=== PATIENT | female | born 1965 | race Caucasian/White ===

== ENCOUNTER 2018-07-06 21:33 | Inpatient (IN) | payer OTHER ==
[~2018-07-06] VITALS: Ht 165.1 cm; Wt 80.7 kg
[2018-07-06] VITALS: BP 125/84
[2018-07-06] MEDS ORDERED: PROPOFOL 20 ML IV ONE (21:38)
--- NOTE | 2018-07-06 21:40 | NUR ---
PT BIBRA COMPLAINING OF RIGHT ANKLE PAIN AFTER FALL FROM MOTORIZED SCOOTER. PT DENIES LOC, HEADACHE, CHANGE IN VISION. NOTED DEFORMITY ON RIGHT ANKLE. PT IN SEVERE PAIN. PT PLACED ON DIRECTOR OF FLIGHT OPERATIONS, WILL CONTINUE TO MONITOR
--- NOTE | 2018-07-06 21:43 | NUR ---
MD AT BEDSIDE FOR EVALUATION
--- NOTE | 2018-07-06 21:44 | NUR ---
CONSENT FORM SIGNED FOR MODERATE SEDATION FOR RIGHT ANKLE REDUCTION
--- NOTE | 2018-07-06 21:45 | NUR ---
DR. RICHARDSON AND RT AT BEDSIDE
[2018-07-06] MEDS ORDERED: IV NS 0.9% 500 ML IV ONE (22:00)
[2018-07-06] MEDS ORDERED: PROPOFOL 200 MG/20 ML VIAL IV ONE (22:00)
[2018-07-06] MEDS ORDERED: HYDROMORPHONE INJ 0.5 MG/0.5 ML SYRINGE IV ONE (22:00)
--- NOTE | 2018-07-06 22:00 | NUR ---
PT AAOX4. RESPIRATIONS EVEN AND UNLABORED. VITAL SIGNS STABLE. WILL CONTINUE TO MONITOR
[2018-07-06] MEDS ORDERED: HYDROMORPHONE 1 MG/1 ML DISP.SYRIN ONE (22:08)
--- NOTE | 2018-07-06 22:15 | NUR ---
FAMILY AT BEDSIDE
[2018-07-06] MEDS ORDERED: MAG HYDROX/AL HYDROX/SIMETH 30 ML UDC PO PRN (23:00)
[2018-07-06] MEDS ORDERED: MORPHINE SULFATE INJ 4 MG/ML DISP.SYRIN IV PRN (23:00)
[2018-07-06] MEDS ORDERED: Z GUARD REMEDY 2 OZ OINT TP PRN (23:00)
[2018-07-06] MEDS ORDERED: HYDROCODONE/APAP 5/325MG 1 EACH TABLET PO PRN (23:00)
[2018-07-06] MEDS ORDERED: MAGNESIUM HYDROXIDE 30 ML UDC PO PRN (23:00)
[2018-07-06] MEDS ORDERED: ZOLPIDEM TARTRATE 5 MG TABLET PO PRN (23:00)
[2018-07-06] MEDS ORDERED: ACETAMINOPHEN 325 MG TABLET PO PRN (23:00)
[2018-07-06] MEDS ORDERED: ONDANSETRON HCL/PF 4 MG/2 ML VIAL IVP PRN (23:00)
[2018-07-06 23:14] LABS: BASOPHILS # (AUTO) 0.1 /CMM (0.0-0.2); BASOPHILS % (AUTO) 0.4 % (0.0-2.0); EOSINOPHILS % (AUTO) 0.7 % (0.0-6.0); HEMATOCRIT 41 % (33-45); LYMPHOCYTES # (AUTO) 2.3 /CMM (0.8-4.8); LYMPHOCYTES % (AUTO) 18.3 % (20.0-44.0); MEAN CORPUSCULAR HGB CONC 31 g/dl (31.0-36.0); MEAN CORPUSCULAR VOLUME 82 fL (82-100); MONOCYTES # (AUTO) 0.6 /CMM (0.1-1.30); MONOCYTES % (AUTO) 4.6 % (2.0-12.0); NEUTROPHILS # (AUTO) 9.4 /CMM (1.8-8.9); PLATELET COUNT (AUTO) 247 /CMM (150-450); RED BLOOD CELL COUNT(AUTO) 5.03 MIL/uL (4.0-5.2); WHITE BLOOD COUNT (AUTO) 12.3 K/uL (4.3-11.0)
--- NOTE | 2018-07-06 23:17 | NUR ---
GAVE REPORT TO JAELYN MATHUR FOR OLIMPIA
[2018-07-06 23:28] LABS: CALCIUM, SERUM 8.9 mg/dL (8.5-10.1); CREATININE 0.7 mg/dL (0.6-1.3); POTASSIUM 4.2 mmol/L (3.5-5.1)
[2018-07-07] VITALS: BP 125/84
--- NOTE | 2018-07-07 | NUR ---
RN ADMITTING NOTES Pt ARRIVED TO FLOOR VIA ER [facility]. Pt WAS SAFELY TRANSFERRED FROM [place] TO ROOM BED. Pt IS A/OX4, VERBAL, ABLE TO MAKE NEEDS KNOWN. ABLE TO COMMUNICATE WELL. NO S/S OF SEVERE SOB NOTED. FAMILY IS AT BEDSIDE. SAFETY MEASURES IN PLACE. BED LOW, LOCKED, HOB ELEVATED, SIDE RAILS UP, CALL LIGHT AND BEDSIDE TABLE WITHIN REACH. WILL CONTINUE TO MONITOR Pt's CONDITION AND SAFETY THROUGHOUT THE NIGHT.
--- NOTE | 2018-07-07 00:25 | NUR ---
RN NOTES Pt IS IN TOO MUCH PAIN DUE TO RT FOOT FX TO MOVE TO HER SIDE TO DO A FULL SKIN ASSESSMENT OF THE BACK AND SACRUM. Pt DID NOT WANT TO MOVE TO SIDE. OFFERED PAIN MEDICATION FOR HER PAIN, BUT Pt SAID SHE WANTED TO BE AWAKE & ALERT WHEN THE DR COMES UP TO SPEAK WITH HER. PER Pt STATEMENT DOES NOT HAVE ANY OTHER WOUNDS OR INJURY ON BACK THAT SHE KNOWS OF. WAS ONLY ABLE TO DO FRONT HEAD TO TOE SKIN ASSESSMENT. FOUND SKIN TO BE INTACT. ONE SMALL ELBOW SCRATCH MONTY ON THE RT ARM.
--- NOTE | 2018-07-07 01:15 | NUR ---
RN NOTES DR PATRICIO IN ROOM VISITING Pt AND SPEAKING WITH Pt AND FAMILY MEMBERS.
--- NOTE | 2018-07-07 01:45 | NUR ---
RN NOTES SHENG SPOKE WITH Pt AND FAMILY AND ANSWERED THEIR QUESTIONS IN REGARDS TO PLAN OF CARE. DUE TO Pt's ADVERSE REACTION TO MORPHINE, SHENG CHANGED ORDER TO DILAUDID 0.25MG Q4H IV PRN FOR SEVERE PAIN & TORADOL 30MG Q6H IM FOR SEVERE PAIN/BREAK THROUGH PAIN. SHENG ALSO ORDERED X1 DOSE OF XANAX 1MG PO. THEN WILL HAVE A STANDING PRN ORDER FOR XANAX 0.5MG Q8H FOR ANXIETY.
[2018-07-07] MEDS ORDERED: ALPRAZOLAM 0.25 MG TABLET PO PRN (02:00)
[2018-07-07] MEDS ORDERED: HYDROCODONE/APAP 10/325MG 1 EA TABLET PO PRN (02:00)
[2018-07-07] MEDS ORDERED: HYDROMORPHONE INJ 0.5 MG/0.5 ML SYRINGE IV PRN (02:00)
[2018-07-07] MEDS ORDERED: ALPRAZOLAM 1 MG TABLET PO ONE (02:00)
[2018-07-07] MEDS ORDERED: KETOROLAC TROMETHAMINE INJ 30 MG/ML VIAL IM PRN (02:00)
[2018-07-07] MEDS ORDERED: HYDROCODONE/APAP 5/325MG 1 EACH TABLET PO PRN (02:00)
--- NOTE | 2018-07-07 02:04 | NUR ---
RN NOTES WAS ABLE TO DO A PARTIAL UPPER BACK SKIN ASSESSMENT. FOUND SKIN INTACT.
--- NOTE | 2018-07-07 02:40 | NUR ---
RN NOTES ADMINISTERED XANAX 1MG PO PER MD ORDER
--- NOTE | 2018-07-07 03:19 | NUR ---
RN NOTES Pt IS HOLDING OFF ON SIGNING ANY CONSENT FORM FOR SURGERY FOR THE RT FOOT FX, UNTIL SHE SPEAKS PERSONALLY WITH THE ORTHOPEDIC TEAM/SURGEON WHO WILL BE PERFORMING THE SURGERY TO ANSWER HER QUESTIONS AND EXPLAIN IN DETAIL WHAT THE SURGERY ENTAILS. Pt IS REQUESTING TO BE SEEN BY THE DR FIRST IN THE MORNING.
--- NOTE | 2018-07-07 04:40 | NUR ---
RN NOTES ABDUCTOR PILLOW PLACED IN BETWEEN LEGS TO HELP Pt KEEP RT LEG STRAIGHT AND IMMOBILE.
--- NOTE | 2018-07-07 06:35 | NUR ---
RN CLOSING NOTES NO SIGNIFICANT CHANGES IN Pt's CONDITION. Pt REMAINS STABLE PER BASELINE. FOUND Pt ASLEEP IN BED. NO S/S OF ACUTE DISTRESS OR SOB NOTED. RESPIRATIONS EVEN AND UNLABORED. ABDUCTOR PILLOW IN PLACE. ALL NEEDS MET AND ATTENDED TO. SAFETY MEASURES IN PLACE. WILL ENDORSE TO DAYSHIFT RN FOR Pt's OLIMPIA.
[2018-07-07 06:52] LABS: BASOPHILS # (AUTO) 0.1 /CMM (0.0-0.2); BASOPHILS % (AUTO) 0.5 % (0.0-2.0); EOSINOPHILS % (AUTO) 0.6 % (0.0-6.0); HEMATOCRIT 37 % (33-45); HEMOGLOBIN 11.8 g/dL (11.5-14.8); LYMPHOCYTES # (AUTO) 2.3 /CMM (0.8-4.8); LYMPHOCYTES % (AUTO) 20.3 % (20.0-44.0); MEAN CORPUSCULAR HGB CONC 32 g/dl (31.0-36.0); MEAN CORPUSCULAR VOLUME 81 fL (82-100); MONOCYTES # (AUTO) 0.7 /CMM (0.1-1.30); MONOCYTES % (AUTO) 6.7 % (2.0-12.0); NEUTROPHILS # (AUTO) 8.1 /CMM (1.8-8.9); NEUTROPHILS % (AUTO) 71.9 % (43.0-81.0); PLATELET COUNT (AUTO) 292 /CMM (150-450); RED BLOOD CELL COUNT(AUTO) 4.56 MIL/uL (4.0-5.2); WHITE BLOOD COUNT (AUTO) 11.2 K/uL (4.3-11.0)
[2018-07-07 07:00] LABS: CALCIUM, SERUM 8.9 mg/dL (8.5-10.1); CREATININE 0.7 mg/dL (0.6-1.3); PHOSPHORUS 3.7 mg/dL (2.5-4.9); POTASSIUM 3.7 mmol/L (3.5-5.1)
[2018-07-07] MEDS ORDERED: BUPIVACAINE 0.5 % PF 150 MG/30 ML VIAL ONE (07:27)
[2018-07-07] MEDS ORDERED: ANESTHESIA TRAY IN PYXIS 1 EA TRAY MC ONE (07:27)
[2018-07-07] MEDS ORDERED: BACITRACIN 50000 UNITS/VIAL ONE (07:28)
--- NOTE | 2018-07-07 07:38 | NUR ---
MS RN OPENING NOTES RECEIVED PT FROM NIGHTSHIFT RN IN STABLE CONDITION. PT IS A/O X3. NO SOB NOTED. BREATHING IS EVEN AND UNLABORED. PT ON RA AND SATING WELL. PT COMPLAINS OF A SHARP PAIN RATED A 9/10 TO HER RIGHT ANKLE. VSS. IV TO LEFT HAND NOTED TO BE PATENT AND INTACT. NO REDNESS OR SIGNS OF INFILTRATION NOTED. DR. ROBERT AT BEDSIDE TO DISCUSS POSSIBLE SURGICAL INTERVENTION. PT STATES THAT SHE NEEDS TIME TO DISCUSS WITH HER FAMILY ABOUT PLAN OF CARE BEFORE SIGNING CONSENTS. BED IN LOW LOCKED POSITION, SIDE RAILS UP X2, CALL LIGHT WITHIN REACH. WILL CONTINUE TO MONITOR
[2018-07-07 08:00] VITALS: BP 127/70
--- NOTE | 2018-07-07 08:25 | NUR ---
MS RN NOTES: SURGICAL CONSENTS PT AGREEABLE TO SURGICAL INTERVENTION. CONSENTS FOR PROCEDURE, ANESTHESIA, AND BLOOD/BLOOD PRODUCTS SIGNED BY PT AND MD. SURGICAL CHECKLIST COMPLETED BY RN.
--- NOTE | 2018-07-07 08:30 | NUR ---
PT TAKEN DOWN TO OR IN STABLE CONDITION
[2018-07-07] MEDS ORDERED: BUPIVACAINE 0.75% DEXT-PF 2 ML AMPUL ONE (08:36)
[2018-07-07] MEDS ORDERED: MIDAZOLAM HCL 2 MG/2ML VIAL ONE (08:36)
[2018-07-07] MEDS ORDERED: MORPHINE SULFATE/PF 10 MG/10ML (1MG/ML) AMPUL ONE (08:37)
[2018-07-07] MEDS ORDERED: PROPOFOL 100 ML ONE (08:37)
[2018-07-07] MEDS ORDERED: SEVOFLURANE 250 ML BOTTLE IH ONE (08:37)
[2018-07-07] MEDS ORDERED: FENTANYL PF 100MCG/2ML AMPUL ONE (08:38)
[2018-07-07] MEDS ORDERED: DESFLURANE 240 ML BOTTLE IH ONE (08:38)
[2018-07-07] MEDS ORDERED: ONDANSETRON HCL/PF 4 MG/2 ML VIAL ONE (11:55)
[2018-07-07] MEDS ORDERED: HYDROMORPHONE 1 MG/1 ML DISP.SYRIN IV PRN (12:00)
[2018-07-07] MEDS ORDERED: NALOXONE HCL 0.4 MG/ML AMPUL IV PRN ×2 (12:00)
[2018-07-07] MEDS ORDERED: diphenhydrAMINE HCL 25 MG CAPSULE PO PRN (12:00)
[2018-07-07] MEDS ORDERED: ONDANSETRON HCL/PF 4 MG/2 ML VIAL IVP PRN (12:00)
[2018-07-07] MEDS ORDERED: MORPHINE SULFATE INJ 4 MG/ML DISP.SYRIN IV PRN (12:30)
[2018-07-07] MEDS ORDERED: oxyCODONE IR immediate release 5 MG PO PRN (12:30)
[2018-07-07] MEDS: ACETAMINOPHEN 325 MG TABLET PO SCH ×2 (12:47→19:00)
--- NOTE | 2018-07-07 12:56 | NUR ---
MS RN NOTES: POST OP PT BACK FROM OR IN STABLE CONDITION. VSS. PT RECEIVED SPINAL ANESTHESIA IN OR AND THEREFORE WILL BE PLACED ON CONTINUOUS PULSE OX AND TELE MONITORING FOR 24HRS. BERMAN CATHETER NOTED AND DRAINING CLEAR YELLOW URINE. ORDERS ACKNOWLEDGED AND NOTED BY . IV PATENT AND INTACT. PT CURRENTLY RECEIVING LR INFUSION FROM OR. SURGICAL DRESSINGS TO RIGHT LOWER EXTREMITY NOTED TO BE CLEAN, DRY, AND INTACT. EXTREMITY OFFLOADED ON PILLOWS. PT DENIES PAIN AT THIS TIME. SAFETY MEASURES IN PLACE. PT'S FAMILY AT BEDSIDE. WILL CONTINUE TO MONITOR Addendum: 07/07/18 at 1340 by VICK HOOD RN BILATERAL LOWER EXTREMITY PULSES NOTED. PT ABLE TO MOVE TOES WHEN COMMANDED. CAP REFILL TO LOWER EXTREMITY WNL. PT SATING AT 98%. A/O X3
[2018-07-07 13:00] VITALS: BP 125/84
[2018-07-07 14:00] VITALS: BP 112/63
[2018-07-07 16:00] VITALS: BP 95/61
[2018-07-07] MEDS: CEFAZOLIN 2 GM in IV D5W 50 ML IV SCH (16:08)
--- NOTE | 2018-07-07 18:38 | NUR ---
MS RN CLOSING NOTES PT REMAINS STABLE POST PROCEDURES. VSS. NO COMPLAINTS OF PAIN AT THIS TIME. IV REMAINS PATENT AND INTACT. SURGICAL DRESSINGS REMAIN CLEAN,. DRY, INTACT AND OFFLOADED ON PILLOWS. PT SR ON THE TELE MONITOR WITH A CURRENT HR OF 88. CONTINUES PULSE OX REMAINS. PT NOTED TO BE SATING AT 98%. NO NEUROLOGICAL CHANGES NOTED THROUGHOUT SHIFT. BERMAN CATHETER REMAINS PATENT AND INTACT. SAFETY MEASURES REMAIN IN PLACE. PT'S FAMILY AT BEDSIDE. WILL ENDORSE TO NIGHTSHIFT RN FOR OLIMPIA
--- NOTE | 2018-07-07 19:15 | NUR ---
TELE/RN NOTES RECEIVED PT. LYING IN BED RESTING. PT. IS EASILY AROUSABLE TO NAME. AWAKE, ALERT AND ORIENTED X3. BREATHING EVEN AND UNLABORED ON 5LPM O2 VIA NC. NO SOB, RESPIRATORY DISTRESS OR COMPLAINTS OF PAIN NOTED AT THIS TIME. PT. WITH CONTINUOUS PULSE OX PRESENT AND INTACT PT. O2 SAT 97%. PT. WITH EXTERNAL JUNIOR WEB DESIGNER PRESENT AND INTACT. CURRENT RHYTHM = SINUS RHYTHM HR 80. PT. IS POST OP ORIF OF RIGHT ANKLE TODAY WITH DR ROBERT. PT. WITH POST OP DRESSING PRESENT, CLEAN, DRY AND INTACT. NO BLEEDING OR DRAINAGE NOTED AT THIS TIME. PT. WITH LEFT HAND 20 GAUGE IV SALINE LOCK PRESENT, PATENT AND INTACT. PT. WITH BERMAN CATHETER PRESENT, PATENT AND INTACT DRAINING CLEAR SARAH URINE. BED LOCKED AND IN LOWEST POSITION, SIDE RAILS UP X2, CALL LIGHT WITHIN REACH, WILL CONTINUE TO MONITOR.
[2018-07-07 20:00] VITALS: BP 99/61
[2018-07-07] MEDS: oxyCODONE IR immediate release 5 MG PO PRN (23:00)
[2018-07-08] VITALS: BP 98/59
[2018-07-08] MEDS: CEFAZOLIN 2 GM in IV D5W 50 ML IV SCH (00:42)
[2018-07-08] MEDS: ACETAMINOPHEN 325 MG TABLET PO SCH ×3 (01:00→13:00)
--- NOTE | 2018-07-08 02:45 | NUR ---
TELE/RN NOTES PT. INSISTING ON REMOVING CONTINUOUS PULSE OXIMETER BECAUSE PT. HEART RATE GOES TO 58-59 WHEN SLEEPING AND IS CAUSING IT TO ALARM. PT. O2 SAT 99-100%. NO SOB OR RESPIRATORY DISTRESS NOTED. PT. WITH EXTERNAL FOOTWEAR SALES COORDINATOR ON CURRENT RHYTHM = SINUS RHYTHM HR 72. EDUCATED PT. ON IMPORTANCE OF MONITORING PT. O2 SATURATION. PT. VERBALIZED UNDERSTANDING AND CONTINUES TO INSIST ON REMOVING CONTINUOUS PULSE OXIMETER. WILL CONTINUE TO MONITOR.
[2018-07-08 04:00] VITALS: BP 97/57
--- NOTE | 2018-07-08 06:33 | NUR ---
TELE/RN NOTES PT. IS LYING IN BED RESTING. BREATHING EVEN AND UNLABORED ON 5LPM O2 VIA NC. NO SOB, RESPIRATORY DISTRESS OR COMPLAINTS OF PAIN NOTED AT THIS TIME. PT. CONTINUES TO REFUSE CONTINUOUS PULSE OX AT THIS TIME. PT. WITH EXTERNAL POISER PRESENT AND INTACT. CURRENT RHYTHM = SINUS RHYTHM HR 63. PT. WITH POST OP DRESSING PRESENT, CLEAN, DRY AND INTACT. NO BLEEDING OR DRAINAGE NOTED AT THIS TIME AND THROUGHOUT SHIFT. PT. WITH LEFT HAND 20 GAUGE IV SALINE LOCK PRESENT, PATENT AND INTACT. PT. WITH BERMAN CATHETER PRESENT, PATENT AND INTACT DRAINING CLEAR YELLOW URINE. ALL PT. NEEDS MET. BED LOCKED AND IN LOWEST POSITION, SIDE RAILS UP X2, CALL LIGHT WITHIN REACH, WILL ENDORSE TO DAYSHIFT NURSE FOR CONTINUITY OF CARE.
--- NOTE | 2018-07-08 07:45 | NUR ---
WEIGHT CONTROL ENGINEER OPENING NOTE RECEIVED PATIENT AWAKE ALERT AND ORIENTED x4 IN BED LOCKED IN LOWEST POSITION WITH SIDE RAILS UP x2 FOR SAFETY. S/P RIGHT ANKLE ORIF WITH DR. ROBERT 07/07/18. NON WEIGHT BEARING ON THE RIGHT FOOT, TO BE ELEVATED AND ICED THROUGHOUT SHIFT. BERMAN CATHETER PRESENT, DRAINING WELL WITH CLEAR SARAH URINE. TELE NSR 84. LEFT HAND IV INTACT AND PATENT NO REDNESS OR SWELLING NOTED AT THIS TIME WITH NO IV FLUIDS. ABLE TO COMMUNICATE NEEDS. CALL LIGHT WITHIN REACH. LABS THIS MORNING. NO PAIN NOTED AT THIS TIME. NO SOB OR DISTRESS NOTED ON 5L/MIN VIA NASAL CANNULA TOLERATING WELL. WILL CONTINUE CONTINUITY OF CARE
[2018-07-08 08:00] VITALS: BP 95/59
[2018-07-08] MEDS ORDERED: LEVALBUTEROL HCL NEB 1.25 MG/0.5 ML VIAL.NEB IH SCH (08:00)
[2018-07-08] MEDS ORDERED: LEVO50TA8 PO (08:13)
[2018-07-08] MEDS ORDERED: BUPR-51 PO (08:13)
[2018-07-08] MEDS ORDERED: LEVOTHYROXINE SODIUM 50 MCG TABLET PO SCH (08:30)
--- NOTE | 2018-07-08 08:30 | NUR ---
DIABETES EDUCATION COORDINATOR NOTE PAGED DR. ROBERT FOR PATIENT REQUESTING TO SEE HIM
--- NOTE | 2018-07-08 09:30 | NUR ---
FREIGHT FLAGMAN NOTE PER DR. ROBERT PATIENT CAN BE DISCHARGED IF CLEARED BY PCP AND PHYSICAL THERAPY. REMOVE BERMAN. ORDERS NOTED AND CARRIED OUT
--- NOTE | 2018-07-08 09:35 | NUR ---
DEPARTMENT HEAD JUNIOR COLLEGE NOTE CALLED PHYSICAL THERAPY FOR EVALUATION. PT TO COME UP SHORTLY
--- NOTE | 2018-07-08 09:40 | NUR ---
OUTSIDE SALES ADVERTISING EXECUTIVE NOTE BERMAN CATHETER REMOVED-100CC OUTPUT. PATIENT VOIDED
[2018-07-08] MEDS: oxyCODONE IR immediate release 5 MG PO PRN ×2 (09:49→14:01)
--- NOTE | 2018-07-08 09:49 | NUR ---
PRODUCT SAFETY TESTER NOTE PATIENT REQUESTING OXY IR 5 MG FOR RIGHT ANKLE PAIN 11/22. REPOSITIONING OFFERED, STILL UNCOMFORTABLE AND IN PAIN. MEDICATION GIVEN. WILL REASSESS EFFECTIVENESS OF MEDICATION
--- NOTE | 2018-07-08 09:50 | NUR ---
SERVICE DEVELOPER NOTE PHYSICAL THERAPY AT BEDSIDE.
[2018-07-08] MEDS ORDERED: HYDR-4384 PO (10:59)
[2018-07-08] MEDS ORDERED: RIVA10TA PO (11:00)
[2018-07-08] MEDS ORDERED: MORPHINE SULFATE INJ 4 MG/ML DISP.SYRIN IV PRN (12:00)
[2018-07-08] MEDS ORDERED: ALBUTEROL FS 2.5 MG/0.5 ML VIAL.NEB NEB SCH (13:30)
--- NOTE | 2018-07-08 14:01 | NUR ---
MS RN NOTE PATIENT REQUESTING OXY IR 5 MG FOR 5/10 PAIN ON RIGHT ANKLE. REPOSITIONING AND OTHER ALTERNATIVES OFFERED. PATIENT STILL IN PAIN. MEDICATION GIVEN.
--- NOTE | 2018-07-08 14:50 | NUR ---
RAMP SERVICE AGENT NOTE PATIENT DISCHARGED IN STABLE CONDITION TO HOME. ALLD UE MEDICATIONS GIVEN ORDERED. ALL NURSING CARE NEEDS ATTENDED TO NEEDED. CALL LIGHT WITHIN REACH AT ALL TIMES. SAFETY MEASURES IMPLEMENTED. ALERT AND ORIENTED x4 NO FACIAL GRIMACING NOTED FOR PAIN AT THIS TIME. NO SOB OR DISTRESS NOTED ON ROOM AIR TOLERATING WELL AT 98%. IV REMOVED, SKIN INTACT. RIGHT ANKLE ORIF DONE BY DR ROBERT 07/07/18. PRESCRIPTION GIVEN TO PATIENT AT DISCHARGE. DISCHARGE INSTRUCTIONS GIVEN TO PATIENT AND FAMILY AT BEDSIDE. TEACH BACK RECEIVED. ALL BELOGNINGS WITH PATIENT UPON DISCHARGE. WALKER SENT WITH PATIENT. HOME WITH HOME HEALTH. LEFT VIA PRIVATE CAR WITH SISTER
[2018-07-08] MEDS ORDERED: RIVAROXABAN 10 MG TABLET PO SCH (17:00)
[2018-07-09] MEDS ORDERED: ONDANSETRON HCL/PF 4 MG/2 ML VIAL IVP PRN (12:00)
== END 2018-07-08 14:52 | disposition home health service (06) | DRG 494 ==
LOC: ER 21:40 → MED 23:05 → TELE 07-07 13:00 → MED 07-08 10:01
PROVIDERS: ADMIT Internal Medicine; ATTEND Internal Medicine
PROC: 0QSG04Z Reposition Right Tibia with Internal Fixation Device, Open Approach (ICD-10-PCS; principal; 2018-07-07 08:00)
PROC: 0QSJ04Z Reposition Right Fibula with Internal Fixation Device, Open Approach (ICD-10-PCS; principal; 2018-07-07 08:00)
DX: S82.851A Displaced trimalleolar fracture of right lower leg, initial encounter for closed fracture (principal); Y92.410 Unspecified street and highway as the place of occurrence of the external cause; J45.909 Unspecified asthma, uncomplicated; F32.9 Major depressive disorder, single episode, unspecified; Z79.01 Long term (current) use of anticoagulants; Z90.49 Acquired absence of other specified parts of digestive tract; E03.9 Hypothyroidism, unspecified; D72.829 Elevated white blood cell count, unspecified; F41.9 Anxiety disorder, unspecified; V00.831A Fall from motorized mobility scooter, initial encounter; R73.03 Prediabetes; D64.9 Anemia, unspecified
CPT/HCPCS: 36415; 71045-TC; 73560-TC; 73590-TC; 73610-TC; 80048-TC; 83735-TC; 84100-TC; 85025-TC; 85610-TC; 85730-TC; 86850-TC; 87081-TC; 97116-TC; 97530-TC; A4606; A6402; G0378; G0500; J0690; J1100; J1170; J1885; J2250; J2270; J2274; J2405; J2704; J3010; J3490; J7040; J7050; J7060; Z7610